=== PATIENT | female | born 1985 | race Caucasian/White ===

== ENCOUNTER 2022-07-10 12:49 | Observation (INO) | payer BC ==
[~2022-07-10] VITALS: Ht 152.4 cm; Wt 70.3 kg
[2022-07-10] MEDS ORDERED: PNV1TABL5 PO (13:06)
--- NOTE | 2022-07-10 13:20 | NUR ---
PATIENT HAS BEEN SCREENED AND CATEGORIZED LOW NUTRITION RISK. PATIENT WILL BE SEEN WITHIN 7 DAYS OF ADMISSION. 07/17/[address]
[2022-07-10] MEDS ORDERED: LACTATED RINGERS 1,000 ML IV SCH (13:30)
[2022-07-10 14:01] VITALS: BP 109/66
== END 2022-07-10 15:25 | disposition home or self-care (01) ==
LOC: MLD 12:49
PROVIDERS: ADMIT Obstetrics & Gynecology; ATTEND Obstetrics & Gynecology
DX: O99.891 Other specified diseases and conditions complicating pregnancy (principal); M54.50 Low back pain, unspecified; Z3A.36 36 weeks gestation of pregnancy
CPT/HCPCS: 59025; 81000; 96360; G0378